=== PATIENT | male | born 1950 | race African-American/Black ===

== ENCOUNTER 2017-05-23 12:35 | Emergency (ER) | payer MEDICAID, OTHER ==
[~2017-05-23] VITALS: Ht 172.7 cm; Wt 68.0 kg
[~2017-05-23 12:35] MED LIST: ATOR10TA69 PO; CLOP75TA33 PO; FERR-63 PO; LISI-186 PO; METO25TA6 PO; NITR0.4T49 SL; NO HOME MEDS
[2017-05-23 17:03] VITALS: BP 140/90
== END 2017-05-23 17:04 | disposition home or self-care (01) ==
LOC: ER 13:44
DX: M79.89 Other specified soft tissue disorders (principal); R03.0 Elevated blood-pressure reading, without diagnosis of hypertension; Z98.890 Other specified postprocedural states
CPT/HCPCS: 93971; 99284

== ENCOUNTER 2024-07-09 16:39 | Emergency (ER) | payer OTHER ==
[~2024-07-09] VITALS: Ht 170.2 cm; Wt 65.9 kg
[2024-07-09 16:52] VITALS: O2SAT 98
[2024-07-09 17:12] VITALS: BP 191/90; PULSE 71; RESP 16; TEMP 36.7; O2SAT 95
[2024-07-09 20:02] LABS: CLARITY URINE CLEAR (CLEAR); COLOR URINE YELLOW (YELLOW); GLUCOSE URINE 1+ (NEGATIVE); KETONES URINE NEGATIVE (NEGATIVE); LEUKOCYTE ESTERASE URINE NEGATIVE (NEGATIVE); NITRITE URINE NEGATIVE (NEGATIVE); OCCULT BLOOD URINE 3+ (NEGATIVE); PH URINE 5.5 (4.5-8.0); PROTEIN URINE TRACE (NEGATIVE); SPECIFIC GRAVITY URINE 1.013 (1.005-1.030); UROBILINOGEN URINE 0.2 E.U./dL (0.2-1.0)
[2024-07-09] MEDS: KETOROLAC 30MG/ML VIAL IM ONE (20:05)
[2024-07-09 20:14] LABS: RBC URINE 25-50 /hpf (0-2); WBC URINE 0-2 /hpf (0-2)
[2024-07-09 20:15] LABS: BACTERIA URINE NONE SEEN; SQUAMOUS EPITHELIAL CELL URINE NONE SEEN /lpf (RARE/1+)
== END 2024-07-09 20:45 | disposition home or self-care (01) ==
LOC: ER 16:39
DX: R33.9 Retention of urine, unspecified (principal)
CPT/HCPCS: 99284; 81003; 51702; 96372; J1885